=== PATIENT | female | born 1945 | race Caucasian/White ===

== ENCOUNTER 2018-03-17 08:08 | Outpatient (CLI) | payer MEDICARE, OTHER ==
--- NOTE | 2018-03-17 08:35 | RAD ---
TWO VIEW CHEST: COMPARISON: 05/06/07. CLINICAL HISTORY: Chest pain. FINDINGS: Cardiac silhouette is at upper limits of normal in size. There is no consolidation or effusion. No pneumothorax. There is vascular calcification. IMPRESSION: No focal consolidation. POS: ZOE[facility]
== END 2018-03-17 08:09 | disposition home or self-care (01) ==
LOC: RAD-FRANK 08:08
PROVIDERS: ATTEND Nurse Practitioner Family
DX: R07.9 Chest pain, unspecified (principal)
CPT/HCPCS: 71046

== ENCOUNTER 2018-12-12 08:21 | Outpatient (CLI) | payer MEDICARE, OTHER ==
--- NOTE | 2018-12-12 10:11 | MRI ---
MRI OF THE RIGHT KNEE WITHOUT CONTRAST: HISTORY: History Of right knee pain. COMPARISON: None. FINDINGS: There are small marginal osteophytes affecting all major compartments of the right knee. There is an area of focal full-thickness articular cartilage thinning involving the medial patellar f acet measuring 1.6 cm. There is moderate to severe diffuse chondrosis involving the medial femorotib ial joint compartment with multifocal areas of full-thickness articular cartilage fissuring involving the central medial femoral condyle. There is a full-thickness obliquely oriented radial tear involving the posterior horn and posterior r oot of the medial meniscus with partial medial extrusion. There is a partially discoid lateral menis cus without evidence of discrete tear. The ACL, PCL, MCL, and LCLC are intact. The extensor mechanism is intact. There is a small semimemb ranosus-medial gastrocnemius popliteal cyst. IMPRESSION: 1. Mild osteoarthrosis of the right knee. 2. Medial meniscal tear. POS: TPC
== END 2018-12-12 08:22 | disposition home or self-care (01) ==
LOC: BICMRI 08:21
PROVIDERS: ATTEND Orthopaedic Surgery
DX: M17.0 Bilateral primary osteoarthritis of knee (principal); S83.241A Other tear of medial meniscus, current injury, right knee, initial encounter

== ENCOUNTER 2020-02-29 08:48 | Outpatient (CLI) | payer MEDICARE, OTHER ==
[2020-02-29] MEDS ORDERED: Iopamidol 370 76% 100 ML VIAL ONE (09:25)
--- NOTE | 2020-02-29 10:05 | CT ---
EXAM: CT ABDOMEN AND PELVIS HISTORY: Gastric mass. Evaluate for staging. COMPARISON: None. Procedure: Multiple contiguous axial images were obtained and a CT of the abdomen and pelvis with IV contrast. C oronal reformats were performed. FINDINGS: Lower Chest: Dependent atelectatic changes. Vessels: Elongation of the aorta. Scattered atherosclerosis. No aneurysm or dissection. Heart: Normal heart size Abdomen: Portal vein:Patent Gallbladder: Slightly diminutive. Hyperenhancement. Nonspecific findings. Liver: within normal limits. Pancreas: within normal limits. Spleen: within normal limits. Adrenals: within normal limits. Kidneys: Symmetric enhancement. No obstructive uropathy. Peritoneum: No ascites or free air, no fluid collection. Bowel: There is circumferential mucosal prominence involving the distal body and antrum of the stomac h. No evidence of bowel obstruction. Ileocecal junction is unremarkable. Normal caliber appendix. Scattered fecal material in a nondistended, nondilated colon. Mesentery and Retroperitoneum: There are enlarged gastrohepatic lymph nodes near the distal aspect of the stomach (gastric antrum). [employer] lymph node measures 0.5 x 1.1 cm. Additional enlarged gastrohepatic lymph nodes are also noted, near the gastric cardia. Diverticulosis involving the left hemicolon. No evidence of diverticulitis. Abdominal Wall: within normal limits. Pelvis: Reproductive Organs: Surgically absent uterus Pelvis: No mass, lymphadenopathy, free air or free fluid. Bladder: within normal limits. Bones: No lytic or blastic lesions in the osseous structures. IMPRESSION: 1. Mucosal thickening involving the distal body of the stomach and gastric antrum compatible with rep orted neoplasm. 2. There is evidence of metastases with enlarged gastrohepatic lymph node at the level of the gastric cardia as well as the distal body of the stomach. Transcribed Date/Time: 02/29/2020 10:20 AM
== END 2020-02-29 08:49 | disposition home or self-care (01) ==
LOC: CT 08:48
PROVIDERS: ATTEND Internal Medicine Gastroenterology
DX: K31.89 Other diseases of stomach and duodenum (principal); R59.0 Localized enlarged lymph nodes; C78.89 Secondary malignant neoplasm of other digestive organs; C80.1 Malignant (primary) neoplasm, unspecified
CPT/HCPCS: 74177; 82565; Q9967

== ENCOUNTER 2020-06-17 14:08 | Emergency (ER) | payer MEDICARE, OTHER ==
[~2020-06-17 14:08] MED LIST: Iopamidol-370 76% 500 ML 1 ML ONE
[2020-06-17 14:41] LABS: #Lymphocytes 0.6 thou/uL (1.20-3.40); #Monocytes 0.1 thou/uL (0.11-0.59); %Basophils 0.1 % (0.0-1.0); %Eosinophils 0.3 % (0.0-10.0); %Monocytes 0.8 % (0.0-10.0); %Neutrophils 87.8 % (42.0-75.0); Hemoglobin 13.3 g/dL (12.0-16.0); Mean Corpuscular HGB CONC 33.9 g/dL (32.0-36.0); Mean Corpuscular Hemoglobin 28.1 pg (27.0-31.0); Mean Corpuscular Volume 82.9 fL (78.0-98.0); Mean Platelet Volume 7.3 fL (7.4-10.4); Platelet Count 274 thou/uL (130-400); RBC Distribution Width 18.7 % (11.5-14.5); Red Blood Cell (RBC) Count 4.72 mill/uL (4.20-5.40); White Blood Cell (WBC) Count 5.7 thou/uL (4.8-10.8)
--- NOTE | 2020-06-17 15:31 | RAD ---
CHEST ONE VIEW PORTABLE: 06/17/20 HISTORY: Chest pain. COMPARISON: 05/06/07 and 03/17/18. FINDINGS: Right central line and injection port. Bilateral lower lung zone horizontal linear and parenchymal ch anges evidence for subsegmental atelectasis. Heat size is within normal limits. The lungs appear norberto r. IMPRESSION: Horizontal linear and parenchymal changes in the bases probably subsegmental atelectasis or developin g chronic change. Right sided central line injection port. Atherosclerosis of the aorta. No evidence for other acute process. POS: RRE
--- NOTE | 2020-06-17 15:37 | CT ---
BRAIN CT WITHOUT IV CONTRAST: 06/17/20 HISTORY: Altered mental status, right sided facial tingling. FINDINGS: No focal mass or midline shift. No intra or extra-axial hemorrhage. Sinuses and mastoids are clear o f acute process. IMPRESSION: No significant acute intracranial process. No mass or bleed. POS: RRE
[2020-06-17 15:39] LABS: ALT (SGPT) 30 U/L (8-55); AST (SGOT) 36 U/L (5-34); Albumin 4.4 g/dL (3.4-4.8); Alkaline Phosphatase 173 U/L (40-110); Anion Gap 16 mmol/L (10-20); BUN (Urea Nitrogen) 8 mg/dL (9.8-20.1); Bilirubin, Total 0.7 mg/dL (0.2-1.2); CK (CPK) 71 U/L (29-168); Calc. Creatinine Clearance 0 mL/min (70-130); Calcium 10.2 mg/dL (7.8-10.44); Carbon Dioxide 21 mmol/L (23-31); Chloride 97 mmol/L (98-107); Estimated GFR-MDRD 63; Globulin 3.2 g/dL (2.4-3.5); Glucose 183 mg/dL (83-110); Potassium 3.1 mmol/L (3.5-5.1); Protein, Total 7.6 g/dL (6.0-8.3); Sodium 131 mmol/L (136-145)
--- NOTE | 2020-06-17 15:42 | CT ---
CT PULMONARY ANGIOGRAM WITH IV CONTRAST AND 3-D POSTPROCESSING: HISTORY:Chest pain FINDINGS: There is good contrast opacification of the pulmonary arterial vasculature without filling defects to suggest pulmonary embolism. The thoracic aorta is well opacified without aneurysm or dissection. No pleural or pericardial effusions are seen. No pneumothoraces, focal areas of consolidation or lung nodules are noted. There are mild dependent c hanges in the posterior lung bases. There are degenerative changes in the spine. Upper abdominal tomograms are unremarkable. IMPRESSION: No CT evidence of pulmonary embolism.
[2020-06-17] MEDS ORDERED: Potassium Chloride 20 MEQ TAB ONE (16:44)
== END 2020-06-17 17:04 | disposition home or self-care (01) ==
LOC: ERS 14:08
DX: R20.2 Paresthesia of skin (principal); E87.6 Hypokalemia; C16.9 Malignant neoplasm of stomach, unspecified; I10 Essential (primary) hypertension; E78.5 Hyperlipidemia, unspecified; F41.9 Anxiety disorder, unspecified; Z92.21 Personal history of antineoplastic chemotherapy
CPT/HCPCS: 70450; 71045; 71275; 80053; 82550; 84484; 85025; 93005; Q9967

== ENCOUNTER 2020-11-16 08:22 | Inpatient (IN) | payer MEDICARE, OTHER ==
[2020-11-16] MEDS ORDERED: Fentanyl 100 MCG/2 ML VIAL ONE (08:55)
[2020-11-16 09:13] LABS: #Basophils 0.1 thou/uL (0.0-0.2); #Eosinphils 1.4 thou/uL (0.0-0.7); #Lymphocytes 1.8 thou/uL (1.20-3.40); #Monocytes 0.9 thou/uL (0.11-0.59); #Neutrophils 10.8 thou/uL (1.40-6.50); %Basophils 0.6 % (0.0-1.0); %Eosinophils 9.4 % (0.0-10.0); %Lymphocytes 12.1 % (21.0-51.0); %Monocytes 5.9 % (0.0-10.0); Hemoglobin 12.4 g/dL (12.0-16.0); Mean Corpuscular HGB CONC 32.9 g/dL (32.0-36.0); Mean Corpuscular Hemoglobin 29.6 pg (27.0-31.0); Mean Corpuscular Volume 90.1 fL (78.0-98.0); Mean Platelet Volume 7.3 fL (7.4-10.4); Platelet Count 237 thou/uL (130-400); RBC Distribution Width 13.4 % (11.5-14.5); Red Blood Cell (RBC) Count 4.17 mill/uL (4.20-5.40)
[2020-11-16 09:26] LABS: ALT (SGPT) 37 U/L (8-55); AST (SGOT) 58 U/L (5-34); Albumin 3.3 g/dL (3.4-4.8); Alkaline Phosphatase 1911 U/L (40-110); Anion Gap 15 mmol/L (10-20); BUN (Urea Nitrogen) 4 mg/dL (9.8-20.1); Calc. Creatinine Clearance 0 mL/min (70-130); Calcium 9.2 mg/dL (7.8-10.44); Carbon Dioxide 24 mmol/L (23-31); Chloride 97 mmol/L (98-107); Glucose 152 mg/dL (83-110); Magnesium 1.9 mg/dL (1.6-2.6); Protein, Total 6.3 g/dL (5.8-8.1); Sodium 133 mmol/L (136-145)
[2020-11-16 09:29] LABS: Potassium 2.9 mmol/L (3.5-5.1)
[2020-11-16] MEDS ORDERED: Potassium Chloride 20 MEQ TAB ONE (10:26)
[2020-11-16 10:56] LABS: Bilirubin Negative (Negative); Blood, Urine Negative (Negative); Clarity Clear (Clear); Glucose, Urine (Dipstick) Normal (Negative); Ketone, Urine Negative (Negative); Leukocyte Negative Leu/uL (Negative); Nitrite Negative (Negative); Protein, Urine (Dipstick) Negative (Neg-Trace); Specific Gravity, Urine 1.017 (1.002-1.036); Urobilinogen Normal mg/dL (Less than 2)
[2020-11-16] MEDS ORDERED: Iopamidol-370 76% 500 ML 1 ML ONE (12:10)
[2020-11-16] MEDS ORDERED: Ondansetron PF 4 MG/2 ML Vial IVP PRN (15:09)
[2020-11-16 17:10] VITALS: BMI 17.7
[2020-11-16] MEDS: Acetaminophen 500 MG TAB PO PRN ×2 (17:13→23:47)
[2020-11-16] MEDS: Sodium Chloride 0.9% 1,000 ML IV SCH (17:15)
[2020-11-16] MEDS: Famotidine/PF 20 mg/2ml Vial SLOW IVP SCH (20:37)
[2020-11-16] MEDS: Cefepime 1 GM in Sodium Chloride 0.9% 100 ML IVPB SCH (20:37)
[2020-11-17 01:24] LABS: SARS-CoV-2 PCR by NAA Not Detected (NotDetected)
[2020-11-17] MEDS: Sodium Chloride 0.9% 1,000 ML IV SCH ×2 (05:31→18:25)
[2020-11-17 06:15] LABS: #Basophils 0.1 thou/uL (0.0-0.2); #Eosinphils 1.2 thou/uL (0.0-0.7); #Lymphocytes 1.7 thou/uL (1.20-3.40); #Monocytes 0.7 thou/uL (0.11-0.59); #Neutrophils 7.2 thou/uL (1.40-6.50); %Basophils 0.6 % (0.0-1.0); %Eosinophils 10.9 % (0.0-10.0); %Lymphocytes 15.8 % (21.0-51.0); %Monocytes 6.8 % (0.0-10.0); %Neutrophils 65.9 % (42.0-75.0); Hemoglobin 11.6 g/dL (12.0-16.0); Mean Corpuscular HGB CONC 32.8 g/dL (32.0-36.0); Mean Corpuscular Hemoglobin 29.9 pg (27.0-31.0); Mean Corpuscular Volume 91.4 fL (78.0-98.0); Mean Platelet Volume 7.4 fL (7.4-10.4); Platelet Count 204 thou/uL (130-400); RBC Distribution Width 13.4 % (11.5-14.5); Red Blood Cell (RBC) Count 3.87 mill/uL (4.20-5.40)
[2020-11-17 06:30] LABS: Anion Gap 13 mmol/L (10-20); BUN (Urea Nitrogen) 4 mg/dL (9.8-20.1); Calc. Creatinine Clearance 63 mL/min (70-130); Carbon Dioxide 25 mmol/L (23-31); Chloride 103 mmol/L (98-107); Glucose 85 mg/dL (83-110); Potassium 3.6 mmol/L (3.5-5.1); Sodium 137 mmol/L (136-145)
[2020-11-17] MEDS: Enoxaparin Sodium 40 MG/0.4 ML SYRINGE SC SCH (10:50)
[2020-11-17] MEDS: Lidocaine 5% Patch TD SCH (10:51)
[2020-11-17] MEDS: Cefepime 1 GM in Sodium Chloride 0.9% 100 ML IVPB SCH ×2 (11:25→20:38)
[2020-11-17] MEDS: Ondansetron ODT 4 MG TAB PO PRN (14:27)
[2020-11-17] MEDS ORDERED: Ondansetron HCl/PF 8 MG in Sodium Chloride 0.9% 50 ML IVPB PRN (16:25)
[2020-11-17] MEDS ORDERED: traMADol HCl 50 MG TAB PO PRN ×2 (16:29)
[2020-11-17] MEDS ORDERED: Ondansetron PF 4 MG/2 ML Vial IVP SCH (16:30)
[2020-11-17] MEDS: Famotidine/PF 20 mg/2ml Vial SLOW IVP SCH (20:38)
[2020-11-17] MEDS ORDERED: Transdermal Patch Removal TOP SCH (21:00)
[2020-11-18] MEDS: Acetaminophen 500 MG TAB PO PRN ×2 (00:41→09:53)
[2020-11-18] MEDS: Ondansetron ODT 4 MG TAB PO PRN (00:41)
[2020-11-18] MEDS: Sodium Chloride 0.9% 1,000 ML IV SCH (08:04)
[2020-11-18] MEDS: Lidocaine 5% Patch TD SCH (08:04)
[2020-11-18] MEDS: Enoxaparin Sodium 40 MG/0.4 ML SYRINGE SC SCH (08:04)
[2020-11-18] MEDS: Cefepime 1 GM in Sodium Chloride 0.9% 100 ML IVPB SCH (08:05)
[2020-11-18 11:35] VITALS: BP 143/71; TEMP 97.6
[2020-11-21 01:37] LABS: Alkaline Phosphastase Total 1648 IU/L (39-117); Bone 46 % (14-68); Intestinal 2 % (0-18); Liver 52 % (18-85)
== END 2020-11-18 13:16 | disposition home or self-care (01) | DRG 542 ==
LOC: ERS 08:22 → SJJU 13:41 → OBSVTOIN 11-17 13:56
PROVIDERS: ADMIT Internal Medicine; ATTEND Internal Medicine
DX: C79.51 Secondary malignant neoplasm of bone (principal); A41.9 Sepsis, unspecified organism; C16.9 Malignant neoplasm of stomach, unspecified; J98.11 Atelectasis; E46 Unspecified protein-calorie malnutrition; R64 Cachexia; Z68.1 Body mass index [BMI] 19.9 or less, adult; N39.0 Urinary tract infection, site not specified; E44.0 Moderate protein-calorie malnutrition; Z20.822 Contact with and (suspected) exposure to COVID-19; I10 Essential (primary) hypertension; E78.5 Hyperlipidemia, unspecified; E87.6 Hypokalemia; E83.39 Other disorders of phosphorus metabolism; K59.00 Constipation, unspecified; G89.29 Other chronic pain; B96.1 Klebsiella pneumoniae [K. pneumoniae] as the cause of diseases classified elsewhere; Z88.2 Allergy status to sulfonamides; Z88.6 Allergy status to analgesic agent; Z79.51 Long term (current) use of inhaled steroids; Z79.899 Other long term (current) drug therapy; Z90.710 Acquired absence of both cervix and uterus; Z88.8 Allergy status to other drugs, medicaments and biological substances
CPT/HCPCS: 36415; 74177; 76705; 78306; 80048; 80053; 81003; 83605; 83690; 83735; 84075; 85025; 87077; 87086; 87186; 87635; 93005; 94760; 96365; 96366; 96372; 96374; 96375; A9503; G0378; J0692; J1650; J2405; J3010; J3490; Q0162; Q9967; S0028; U0003; U0005

== ENCOUNTER 2020-12-28 17:47 | Inpatient (IN) | payer MEDICARE, OTHER ==
[2020-12-28] MEDS ORDERED: Lidocaine 1% (PF) 30 ML VIAL ONE (18:06)
[2020-12-28] MEDS ORDERED: Ondansetron PF 4 MG/2 ML Vial ONE (18:27)
[2020-12-28 18:31] LABS: Hemoglobin 7.1 g/dL (12.0-16.0); Mean Corpuscular HGB CONC 34.2 g/dL (32.0-36.0); Mean Corpuscular Hemoglobin 29.1 pg (27.0-31.0); Mean Corpuscular Volume 85.2 fL (78.0-98.0); Mean Platelet Volume 7.7 fL (7.4-10.4); Platelet Count 166 thou/uL (130-400); RBC Distribution Width 14.9 % (11.5-14.5); Red Blood Cell (RBC) Count 2.43 mill/uL (4.20-5.40); White Blood Cell (WBC) Count 1.3 thou/uL (4.8-10.8)
[2020-12-28 18:50] LABS: Anisocytosis SLIGHT = 6-15 cells (100X) (0-5/hpf); Band 4 % (5-11); Basophilic Stippling SLIGHT = 1-2 cells (100X) (None Seen); Differential Comment Blast-Like Cell(s); Eosinophils 11 % (0-10); Lymphocytes 48 % (21-51); MDiff Complete? YES; Monocytes 23 % (0-10); Neutrophil 7 % (42-75); Nucleated RBC 4 % (0); Platelet Morphology Comment Appears Adequate; Polychromasia MODERATE = 3-4 cells (100X) (0-2/hpf); Reactive Lymphocytes 1 % (0-10); Reflex for Review?? YES; Tear Drops SLIGHT = 2-5 cells (100X) (0-1/hpf)
[2020-12-28 18:52] LABS: ALT (SGPT) 13 U/L (8-55); AST (SGOT) 22 U/L (5-34); Albumin 3.1 g/dL (3.4-4.8); Alkaline Phosphatase 1169 U/L (40-110); Anion Gap 16 mmol/L (10-20); BUN (Urea Nitrogen) 11 mg/dL (9.8-20.1); Bilirubin, Total 1.1 mg/dL (0.2-1.2); Calc. Creatinine Clearance 0 mL/min (70-130); Calcium 8.6 mg/dL (7.8-10.44); Carbon Dioxide 21 mmol/L (23-31); Chloride 96 mmol/L (98-107); Globulin 2.8 g/dL (2.4-3.5); Glucose 141 mg/dL (83-110); Protein, Total 5.9 g/dL (5.8-8.1); Sodium 131 mmol/L (136-145)
[2020-12-28 19:00] LABS: Potassium 2.4 mmol/L (3.5-5.1)
[2020-12-28] MEDS ORDERED: Potassium Chloride 20 MEQ TAB ONE (19:17)
[2020-12-28] MEDS ORDERED: D5 1/2 NS w/40 mEq KCL 1,000 ML IV SCH (19:30)
[2020-12-28 20:15] LABS: Bacteria/HPF 3+ HPF (None Seen); Bilirubin Negative (Negative); Blood, Urine Trace (Negative); Clarity Turbid (Clear); Glucose, Urine (Dipstick) Normal (Negative); Ketone, Urine Negative (Negative); Leukocyte Negative Leu/uL (Negative); Nitrite Negative (Negative); Protein, Urine (Dipstick) 30 mg/dL (Neg-Trace); RBC/HPF 0-3 HPF (0-3); Specific Gravity, Urine 1.016 (1.002-1.036); Urobilinogen Normal mg/dL (Less than 2); pH, Urine 5.5 (5.0-9.0)
[2020-12-28] MEDS ORDERED: Ondansetron PF 4 MG/2 ML Vial IVP PRN (21:11)
[2020-12-28] MEDS ORDERED: Sodium Chloride 0.9% 1,000 ML IV SCH (21:15)
[2020-12-28 22:04] LABS: Lactic Acid 2.1 mmol/L (0.5-2.2)
[2020-12-28] MEDS: Piperacillin/Tazobactam 3.375 GM in Sodium Chloride 0.9% 100 ML IVPB SCH (22:15)
[2020-12-29] MEDS ORDERED: Magnesium Oxide 400 MG TAB PO SCH (00:30)
[2020-12-29] MEDS: Piperacillin/Tazobactam 3.375 GM in Sodium Chloride 0.9% 100 ML IVPB SCH ×4 (02:56→17:48)
[2020-12-29 05:28] LABS: SARS-CoV-2 PCR by NAA Not Detected (NotDetected)
[2020-12-29 06:32] LABS: Hemoglobin A1c 5.9 % (4.0-6.0)
[2020-12-29 06:38] LABS: Mean Corpuscular HGB CONC 33.1 g/dL (32.0-36.0); Mean Corpuscular Hemoglobin 28.6 pg (27.0-31.0); Mean Corpuscular Volume 86.2 fL (78.0-98.0); Mean Platelet Volume 7.6 fL (7.4-10.4); Platelet Count 163 thou/uL (130-400); Red Blood Cell (RBC) Count 2.11 mill/uL (4.20-5.40); White Blood Cell (WBC) Count 1.7 thou/uL (4.8-10.8)
[2020-12-29 06:41] LABS: Anion Gap 13 mmol/L (10-20); BUN (Urea Nitrogen) 7 mg/dL (9.8-20.1); Calc. Creatinine Clearance 57 mL/min (70-130); Calcium 8.2 mg/dL (7.8-10.44); Carbon Dioxide 21 mmol/L (23-31); Chloride 103 mmol/L (98-107); Glucose 89 mg/dL (83-110); Magnesium 1.5 mg/dL (1.6-2.6); Sodium 134 mmol/L (136-145)
[2020-12-29 06:42] LABS: Potassium 2.7 mmol/L (3.5-5.1)
[2020-12-29 06:46] LABS: ALT (SGPT) 12 U/L (8-55); AST (SGOT) 19 U/L (5-34); Albumin 2.7 g/dL (3.4-4.8); Alkaline Phosphatase 1017 U/L (40-110); Bilirubin, Direct 0.4 mg/dL (0.1-0.3); Bilirubin, Total 0.9 mg/dL (0.2-1.2); Protein, Total 5.2 g/dL (5.8-8.1)
[2020-12-29 06:54] LABS: Band 1 % (5-11); Eosinophils 9 % (0-10); Lymphocytes 61 % (21-51); MDiff Complete? YES; Metamyelocyte 1 % (0-0); Monocytes 13 % (0-10); Myelocyte 2 % (0-0); Neutrophil 11 % (42-75); Platelet Morphology Comment Appears Adequate; Reactive Lymphocytes 2 % (0-10)
[2020-12-29] MEDS ORDERED: Magnesium 2 GM/50 ML 2 GM in Premix Bag 1 BAG IVPB SCH (07:00)
[2020-12-29] MEDS ORDERED: Potassium Chloride 20 MEQ TAB PO SCH (07:00)
[2020-12-29] MEDS ORDERED: Potassium Chloride 40 MEQ in Sodium Chloride 0.9% 250 ML 250 ML IVPB SCH (07:00)
[2020-12-29] MEDS: Sodium Chloride 0.9% 1,000 ML IV SCH (07:37)
[2020-12-29] MEDS: Enoxaparin Sodium 40 MG/0.4 ML SYRINGE SC SCH (08:30)
[2020-12-29] MEDS: Famotidine 20 MG TAB PO SCH ×2 (08:30→20:38)
[2020-12-29] MEDS ORDERED: Ketorolac Tromethamine 30 MG/ML VIAL IVP SCH (14:30)
[2020-12-29] MEDS ORDERED: Morphine 4 MG/ML VIAL SLOW IVP PRN (14:32)
[2020-12-29] MEDS ORDERED: Ondansetron HCl/PF 8 MG in Sodium Chloride 0.9% 50 ML IVPB PRN (16:17)
[2020-12-29 17:19] LABS: Hemoglobin 8.7 g/dL (12.0-16.0)
[2020-12-29] MEDS: D5W-AA 4.25% with LYTES 1,000 ML IV SCH (17:44)
[2020-12-29] MEDS: BIOTENE MOUTH SPRAY 44.3 ML PO SCH ×2 (18:57→20:39)
[2020-12-30] MEDS: Piperacillin/Tazobactam 3.375 GM in Sodium Chloride 0.9% 100 ML IVPB SCH ×3 (02:18→11:27)
[2020-12-30] MEDS: Sodium Chloride 0.9% 1,000 ML IV SCH ×2 (03:07→20:00)
[2020-12-30 05:45] LABS: ALT (SGPT) 10 U/L (8-55); AST (SGOT) 14 U/L (5-34); Albumin 2.4 g/dL (3.4-4.8); Alkaline Phosphatase 839 U/L (40-110); Bilirubin, Direct 0.3 mg/dL (0.1-0.3); Bilirubin, Total 0.6 mg/dL (0.2-1.2); Protein, Total 4.5 g/dL (5.8-8.1)
[2020-12-30 05:48] LABS: Anion Gap 11 mmol/L (10-20); BUN (Urea Nitrogen) 6 mg/dL (9.8-20.1); Calc. Creatinine Clearance 61 mL/min (70-130); Calcium 7.8 mg/dL (7.8-10.44); Carbon Dioxide 19 mmol/L (23-31); Chloride 107 mmol/L (98-107); Glucose 116 mg/dL (83-110); Magnesium 1.8 mg/dL (1.6-2.6); Sodium 134 mmol/L (136-145)
[2020-12-30 05:49] LABS: Potassium 2.5 mmol/L (3.5-5.1)
[2020-12-30 05:50] LABS: Band 8 % (5-11); Eosinophils 14 % (0-10); Hemoglobin 7.3 g/dL (12.0-16.0); Hypochromia SLIGHT = 6-15 cells (100X) (0-5/hpf); Lymphocytes 56 % (21-51); MDiff Complete? YES; Mean Corpuscular HGB CONC 34.5 g/dL (32.0-36.0); Mean Corpuscular Hemoglobin 29.6 pg (27.0-31.0); Mean Platelet Volume 7.2 fL (7.4-10.4); Monocytes 8 % (0-10); Neutrophil 14 % (42-75); Nucleated RBC 1 % (0); Platelet Count 218 thou/uL (130-400); Platelet Morphology Comment Appears Adequate; Polychromasia SLIGHT = 2-3 cells (100X) (0-2/hpf); RBC Distribution Width 14.3 % (11.5-14.5); Red Blood Cell (RBC) Count 2.46 mill/uL (4.20-5.40)
[2020-12-30] MEDS ORDERED: Potassium Chloride 40 MEQ in Premix Bag 1 BAG IVPB SCH (06:30)
[2020-12-30] MEDS ORDERED: Potassium Chloride 20 MEQ TAB PO SCH (06:30)
[2020-12-30] MEDS: Enoxaparin Sodium 40 MG/0.4 ML SYRINGE SC SCH (08:14)
[2020-12-30] MEDS: Famotidine 20 MG TAB PO SCH ×2 (08:15→20:23)
[2020-12-30] MEDS: BIOTENE MOUTH SPRAY 44.3 ML PO SCH ×4 (08:15→20:24)
[2020-12-30] MEDS ORDERED: Aluminum & Magnesium Hydroxide 60 ML, Lidocaine 2% Viscous Solution 30 ML, diphenhydrAM... SSW PRN (13:12)
[2020-12-30 13:52] LABS: Anion Gap 12 mmol/L (10-20); BUN (Urea Nitrogen) 7 mg/dL (9.8-20.1); Calc. Creatinine Clearance 57 mL/min (70-130); Calcium 8.3 mg/dL (7.8-10.44); Carbon Dioxide 20 mmol/L (23-31); Chloride 105 mmol/L (98-107); Glucose 116 mg/dL (83-110); Potassium 3.1 mmol/L (3.5-5.1); Sodium 134 mmol/L (136-145)
[2020-12-30] MEDS: metroNIDAZOLE 500 MG in Premix Bag 1 BAG IVPB SCH ×2 (14:03→21:48)
[2020-12-30] MEDS: Potassium Chloride 20 MEQ TAB PO SCH ×2 (17:36→20:23)
[2020-12-30] MEDS: D5W-AA 4.25% with LYTES 1,000 ML IV SCH (20:01)
[2020-12-31 05:55] LABS: Anion Gap 13 mmol/L (10-20); BUN (Urea Nitrogen) 6 mg/dL (9.8-20.1); Band 2 % (5-11); Calc. Creatinine Clearance 60 mL/min (70-130); Calcium 8.6 mg/dL (7.8-10.44); Carbon Dioxide 19 mmol/L (23-31); Chloride 106 mmol/L (98-107); Eosinophils 6 % (0-10); Glucose 89 mg/dL (83-110); Hemoglobin 8.3 g/dL (12.0-16.0); Lymphocytes 48 % (21-51); MDiff Complete? YES; Magnesium 1.6 mg/dL (1.6-2.6); Mean Corpuscular HGB CONC 33.9 g/dL (32.0-36.0); Mean Corpuscular Hemoglobin 29.3 pg (27.0-31.0); Mean Corpuscular Volume 86.7 fL (78.0-98.0); Mean Platelet Volume 6.8 fL (7.4-10.4); Metamyelocyte 10 % (0-0); Monocytes 7 % (0-10); Neutrophil 25 % (42-75); Platelet Count 285 thou/uL (130-400); Platelet Morphology Comment Appears Adequate; Potassium 4.6 mmol/L (3.5-5.1); RBC Distribution Width 14.9 % (11.5-14.5); Reactive Lymphocytes 1 % (0-10); Red Blood Cell (RBC) Count 2.83 mill/uL (4.20-5.40); Sodium 133 mmol/L (136-145); White Blood Cell (WBC) Count 7.6 thou/uL (4.8-10.8)
[2020-12-31] MEDS: metroNIDAZOLE 500 MG in Premix Bag 1 BAG IVPB SCH ×3 (06:25→21:39)
[2020-12-31] MEDS: Enoxaparin Sodium 40 MG/0.4 ML SYRINGE SC SCH (07:41)
[2020-12-31] MEDS: Famotidine 20 MG TAB PO SCH ×2 (07:41→20:24)
[2020-12-31] MEDS: BIOTENE MOUTH SPRAY 44.3 ML PO SCH ×4 (07:41→21:39)
[2020-12-31 10:07] VITALS: BMI 17.6
[2020-12-31] MEDS: Sodium Chloride 0.9% 1,000 ML IV SCH (20:23)
[2020-12-31] MEDS: D5W-AA 4.25% with LYTES 1,000 ML IV SCH (20:24)
[2021-01-01] MEDS ORDERED: Acetaminophen 500 MG TAB PO PRN (04:39)
[2021-01-01] MEDS: metroNIDAZOLE 500 MG in Premix Bag 1 BAG IVPB SCH ×2 (05:02→14:26)
[2021-01-01 07:10] LABS: Band 16 % (5-11); Eosinophils 9 % (0-10); Hemoglobin 7.5 g/dL (12.0-16.0); Lymphocytes 20 % (21-51); MDiff Complete? YES; Mean Corpuscular HGB CONC 34.3 g/dL (32.0-36.0); Mean Corpuscular Hemoglobin 29.5 pg (27.0-31.0); Mean Corpuscular Volume 85.9 fL (78.0-98.0); Mean Platelet Volume 6.5 fL (7.4-10.4); Metamyelocyte 8 % (0-0); Monocytes 11 % (0-10); Myelocyte 13 % (0-0); Neutrophil 23 % (42-75); Platelet Count 256 thou/uL (130-400); Platelet Morphology Comment Appears Adequate; RBC Distribution Width 14.8 % (11.5-14.5); Red Blood Cell (RBC) Count 2.54 mill/uL (4.20-5.40)
[2021-01-01 07:16] LABS: ALT (SGPT) 11 U/L (8-55); AST (SGOT) 19 U/L (5-34); Albumin 2.3 g/dL (3.4-4.8); Alkaline Phosphatase 864 U/L (40-110); Anion Gap 11 mmol/L (10-20); BUN (Urea Nitrogen) 6 mg/dL (9.8-20.1); Bilirubin, Total 0.5 mg/dL (0.2-1.2); Calc. Creatinine Clearance 70 mL/min (70-130); Calcium 7.9 mg/dL (7.8-10.44); Carbon Dioxide 18 mmol/L (23-31); Chloride 105 mmol/L (98-107); Globulin 2.2 g/dL (2.4-3.5); Glucose 100 mg/dL (83-110); Magnesium 1.4 mg/dL (1.6-2.6); Potassium 3.4 mmol/L (3.5-5.1); Protein, Total 4.5 g/dL (5.8-8.1); Sodium 131 mmol/L (136-145)
[2021-01-01] MEDS: Enoxaparin Sodium 40 MG/0.4 ML SYRINGE SC SCH (08:22)
[2021-01-01] MEDS: Famotidine 20 MG TAB PO SCH (08:22)
[2021-01-01] MEDS: BIOTENE MOUTH SPRAY 44.3 ML PO SCH ×2 (08:22→14:26)
[2021-01-01] MEDS ORDERED: Magnesium 2 GM/50 ML 2 GM in Premix Bag 1 BAG IVPB SCH (09:30)
[2021-01-01] MEDS ORDERED: Magnesium Sulfate 2 GM in Sodium Chloride 0.9% 100 ML IVPB SCH (09:30)
[2021-01-01 15:18] VITALS: TEMP 98.2
[2021-01-01] MEDS: Sodium Chloride 0.9% 1,000 ML IV SCH (16:00)
[2021-01-01 16:08] VITALS: BP 106/64
[2021-01-02 16:15] LABS: Routine O & P Final report (.)
== END 2021-01-01 16:46 | disposition home or self-care (01) | DRG 393 ==
LOC: ERS 17:47 → 2NO 19:40 → OBSVTOIN 12-29 09:31
PROVIDERS: ADMIT Internal Medicine; ATTEND Internal Medicine
PROC: 30233N1 Transfusion of Nonautologous Red Blood Cells into Peripheral Vein, Percutaneous Approach (ICD-10-PCS; principal; 2020-12-29)
DX: K52.1 Toxic gastroenteritis and colitis (principal); E43 Unspecified severe protein-calorie malnutrition; D61.810 Antineoplastic chemotherapy induced pancytopenia; C16.9 Malignant neoplasm of stomach, unspecified; C79.51 Secondary malignant neoplasm of bone; E87.2 Acidosis; Z68.1 Body mass index [BMI] 19.9 or less, adult; Z20.822 Contact with and (suspected) exposure to COVID-19; I10 Essential (primary) hypertension; E78.5 Hyperlipidemia, unspecified; E87.6 Hypokalemia; R74.8 Abnormal levels of other serum enzymes; E86.0 Dehydration; K12.1 Other forms of stomatitis; T45.1X5A Adverse effect of antineoplastic and immunosuppressive drugs, initial encounter; Z88.2 Allergy status to sulfonamides; Z88.8 Allergy status to other drugs, medicaments and biological substances; Z79.899 Other long term (current) drug therapy; Z90.710 Acquired absence of both cervix and uterus; Z88.1 Allergy status to other antibiotic agents
CPT/HCPCS: 36415; 36416; 36430; 71045; 74177; 78227; 80048; 80053; 80076; 81003; 81015; 82140; 83036; 83605; 83735; 83880; 84484; 85025; 85060; 86850; 86900; 86901; 87040; 87045; 87046; 87077; 87086; 87177; 87186; 87324; 87427; 87449; 87635; 93005; 96365; 96372; 96375; 96376; A9537; G0378; J0744; J1642; J1650; J1885; J2001; J2405; J2543; J3475; J3480; J3490; J7050; P9016; Q9967; U0003; U0005

== ENCOUNTER 2021-01-24 12:26 | Inpatient (IN) | payer MEDICARE, OTHER ==
[2021-01-24 13:36] LABS: Hemoglobin 8.7 g/dL (12.0-16.0); Mean Corpuscular HGB CONC 32.4 g/dL (32.0-36.0); Mean Corpuscular Hemoglobin 28.5 pg (27.0-31.0); Mean Corpuscular Volume 88.2 fL (78.0-98.0); Mean Platelet Volume 7.5 fL (7.4-10.4); Platelet Count 217 thou/uL (130-400); Red Blood Cell (RBC) Count 3.04 mill/uL (4.20-5.40); White Blood Cell (WBC) Count 12.2 thou/uL (4.8-10.8)
[2021-01-24 13:53] LABS: Anisocytosis SLIGHT = 6-15 cells (100X) (0-5/hpf); Band 18 % (5-11); Eosinophils 6 % (0-10); Lymphocytes 14 % (21-51); MDiff Complete? YES; Monocytes 8 % (0-10); Myelocyte 1 % (0-0); Neutrophil 51 % (42-75); Platelet Morphology Comment Appears Adequate; Polychromasia SLIGHT = 2-3 cells (100X) (0-2/hpf); Reactive Lymphocytes 2 % (0-10)
[2021-01-24] MEDS ORDERED: Ondansetron PF 4 MG/2 ML Vial ONE (14:03)
[2021-01-24] MEDS ORDERED: Morphine 4 MG/ML VIAL ONE (14:03)
[2021-01-24 14:04] LABS: ALT (SGPT) 24 U/L (8-55); AST (SGOT) 29 U/L (5-34); Albumin 3.4 g/dL (3.4-4.8); Alkaline Phosphatase 1800 U/L (40-110); Anion Gap 16 mmol/L (10-20); BUN (Urea Nitrogen) 10 mg/dL (9.8-20.1); Bilirubin, Total 0.5 mg/dL (0.2-1.2); Calc. Creatinine Clearance 0 mL/min (70-130); Calcium 8.6 mg/dL (7.8-10.44); Carbon Dioxide 23 mmol/L (23-31); Chloride 100 mmol/L (98-107); Globulin 2.4 g/dL (2.4-3.5); Glucose 113 mg/dL (83-110); Lipase 36 U/L (8-78); Potassium 3.5 mmol/L (3.5-5.1); Protein, Total 5.8 g/dL (5.8-8.1); Sodium 135 mmol/L (136-145)
[2021-01-24 14:13] LABS: Bilirubin Negative (Negative); Blood, Urine Negative (Negative); Clarity Clear (Clear); Glucose, Urine (Dipstick) Normal (Negative); Ketone, Urine Negative (Negative); Leukocyte Negative Leu/uL (Negative); Nitrite Negative (Negative); Protein, Urine (Dipstick) 10 mg/dL (Neg-Trace); Specific Gravity, Urine 1.028 (1.002-1.036); Urobilinogen Normal mg/dL (Less than 2)
[2021-01-24] MEDS ORDERED: Acetaminophen 325 MG TAB PO PRN (15:04)
[2021-01-24] MEDS ORDERED: SUMATRIPTAN 5 MG EA NARE PRN (15:46)
[2021-01-24] MEDS: Sodium Chloride 0.9% 1,000 ML IV SCH (19:54)
[2021-01-24] MEDS: Atorvastatin Calcium 20 MG TAB PO SCH (20:46)
[2021-01-24] MEDS: Ondansetron PF 4 MG/2 ML Vial IVP PRN (20:46)
[2021-01-24 20:53] VITALS: BMI 15.5
[2021-01-24] MEDS ORDERED: HYDROcodone/Acetaminophen 5/325 mg Tablet PO PRN (22:44)
[2021-01-24] MEDS: fentaNYL 50 mcg/hour Patch TD SCH (23:04)
[2021-01-24] MEDS: Amino Acids 4.25 %/Dextrose 5% 1,000 ML IV SCH (23:05)
[2021-01-24] MEDS: Promethazine HCl 25 MG/ML VIAL IM PRN (23:05)
[2021-01-25] MEDS ORDERED: Morphine 4 MG/ML VIAL SLOW IVP SCH (00:45)
[2021-01-25] MEDS: Ondansetron PF 4 MG/2 ML Vial IVP PRN (04:49)
[2021-01-25] MEDS: Sodium Chloride 0.9% 1,000 ML IV SCH ×3 (04:49→21:19)
[2021-01-25 05:08] LABS: Mean Corpuscular HGB CONC 32.3 g/dL (32.0-36.0); Mean Corpuscular Hemoglobin 28.2 pg (27.0-31.0); Mean Corpuscular Volume 87.4 fL (78.0-98.0); Mean Platelet Volume 7.3 fL (7.4-10.4); Platelet Count 210 thou/uL (130-400); RBC Distribution Width 16.7 % (11.5-14.5); Red Blood Cell (RBC) Count 2.49 mill/uL (4.20-5.40); White Blood Cell (WBC) Count 17.2 thou/uL (4.8-10.8)
[2021-01-25 05:24] LABS: Anion Gap 10 mmol/L (10-20); BUN (Urea Nitrogen) 8 mg/dL (9.8-20.1); Calc. Creatinine Clearance 57 mL/min (70-130); Calcium 8.3 mg/dL (7.8-10.44); Carbon Dioxide 24 mmol/L (23-31); Chloride 103 mmol/L (98-107); Glucose 94 mg/dL (83-110); Sodium 134 mmol/L (136-145)
[2021-01-25 05:26] LABS: Potassium 2.8 mmol/L (3.5-5.1)
[2021-01-25 05:28] LABS: Band 38 % (5-11); Eosinophils 6 % (0-10); Hypochromia SLIGHT = 6-15 cells (100X) (0-5/hpf); Lymphocytes 21 % (21-51); MDiff Complete? YES; Metamyelocyte 1 % (0-0); Monocytes 7 % (0-10); Neutrophil 24 % (42-75); Nucleated RBC 1 % (0); Platelet Morphology Comment Appears Adequate; Reactive Lymphocytes 3 % (0-10)
[2021-01-25 06:00] LABS: SARS-CoV-2 NAA Rapid Test Not Detected (NotDetected)
[2021-01-25] MEDS ORDERED: Potassium Chloride 40 MEQ in Premix Bag 1 BAG IVPB SCH (06:00)
[2021-01-25] MEDS ORDERED: Benzonatate 100 MG CAP PO PRN (08:02)
[2021-01-25] MEDS ORDERED: Promethazine 25 MG TAB PO PRN (08:02)
[2021-01-25] MEDS ORDERED: Omega-3 Acid Ethyl Esters [Lovaza] 1 GM Capsule PO SCH (09:00)
[2021-01-25] MEDS: Losartan 25 MG TAB PO SCH (09:00)
[2021-01-25] MEDS: Potassium Chloride 20 MEQ TAB PO SCH ×2 (10:15→14:15)
[2021-01-25] MEDS ORDERED: Morphine 4 MG/ML VIAL SLOW IVP PRN (12:10)
[2021-01-25] MEDS: Promethazine HCl 25 MG/ML VIAL IM PRN (12:17)
[2021-01-25] MEDS ORDERED: CLOBETASOL PROPIONATE TOP SCH (12:30)
[2021-01-25] MEDS: Atorvastatin Calcium 20 MG TAB PO SCH (21:19)
[2021-01-25] MEDS: Amino Acids 4.25 %/Dextrose 5% 1,000 ML IV SCH (21:19)
[2021-01-26 06:04] LABS: Anion Gap 10 mmol/L (10-20); BUN (Urea Nitrogen) 9 mg/dL (9.8-20.1); Calc. Creatinine Clearance 66 mL/min (70-130); Calcium 8.1 mg/dL (7.8-10.44); Carbon Dioxide 23 mmol/L (23-31); Chloride 102 mmol/L (98-107); Glucose 95 mg/dL (83-110); Sodium 132 mmol/L (136-145)
[2021-01-26 06:06] LABS: Potassium 2.7 mmol/L (3.5-5.1)
[2021-01-26 06:13] LABS: Hemoglobin 6.5 g/dL (12.0-16.0); Mean Corpuscular HGB CONC 32.7 g/dL (32.0-36.0); Mean Corpuscular Hemoglobin 28.7 pg (27.0-31.0); Mean Corpuscular Volume 87.9 fL (78.0-98.0); Mean Platelet Volume 7.2 fL (7.4-10.4); Platelet Count 213 thou/uL (130-400); RBC Distribution Width 16.9 % (11.5-14.5); Red Blood Cell (RBC) Count 2.26 mill/uL (4.20-5.40)
[2021-01-26 06:52] LABS: Band 31 % (5-11); Eosinophils 2 % (0-10); Lymphocytes 20 % (21-51); MDiff Complete? YES; Monocytes 1 % (0-10); Neutrophil 45 % (42-75); Nucleated RBC 2 % (0); White Blood Cell (WBC) Count 20.4 thou/uL (4.8-10.8)
[2021-01-26] MEDS ORDERED: Electrolyte Replacement Protocol FS PRN (07:00)
[2021-01-26] MEDS ORDERED: Magnesium Sulfate 4 GM in Sodium Chloride 0.9% 250 ML 250 ML IVPB SCH (07:30)
[2021-01-26] MEDS: Sodium Chloride 0.9% 1,000 ML IV SCH ×2 (07:33→20:46)
[2021-01-26] MEDS: Losartan 25 MG TAB PO SCH (08:05)
[2021-01-26] MEDS: Potassium Chloride 40 MEQ in Premix Bag 1 BAG IVPB SCH ×2 (08:06→13:52)
[2021-01-26] MEDS ORDERED: Potassium Chloride 20 MEQ TAB PO SCH (09:00)
[2021-01-26] MEDS: Ondansetron PF 4 MG/2 ML Vial IVP PRN ×2 (09:37→17:19)
[2021-01-26] MEDS ORDERED: Loperamide HCl 2 MG CAP PO PRN (10:16)
[2021-01-26] MEDS ORDERED: Loperamide HCl 2 MG CAP PO SCH (10:30)
[2021-01-26] MEDS ORDERED: Potassium Chloride 40 MEQ in Premix Bag 1 BAG IVPB SCH (16:00)
[2021-01-26] MEDS ORDERED: Simethicone Chewable 80 MG TAB PO PRN (17:03)
[2021-01-26] MEDS: Simethicone Chewable 80 MG TAB PO PRN (17:34)
[2021-01-26] MEDS: Atorvastatin Calcium 20 MG TAB PO SCH (20:15)
[2021-01-26] MEDS: Amino Acids 4.25 %/Dextrose 5% 1,000 ML IV SCH (20:16)
[2021-01-26] MEDS: Promethazine HCl 25 MG/ML VIAL IM PRN (20:22)
[2021-01-27 05:38] LABS: Anion Gap 11 mmol/L (10-20); BUN (Urea Nitrogen) 7 mg/dL (9.8-20.1); Calc. Creatinine Clearance 66 mL/min (70-130); Calcium 8.3 mg/dL (7.8-10.44); Carbon Dioxide 21 mmol/L (23-31); Chloride 101 mmol/L (98-107); Glucose 93 mg/dL (83-110); Potassium 3.2 mmol/L (3.5-5.1); Sodium 130 mmol/L (136-145)
[2021-01-27 05:46] LABS: Hemoglobin 8.3 g/dL (12.0-16.0); Mean Corpuscular HGB CONC 32.4 g/dL (32.0-36.0); Mean Corpuscular Hemoglobin 28.1 pg (27.0-31.0); Mean Corpuscular Volume 86.8 fL (78.0-98.0); Mean Platelet Volume 7.3 fL (7.4-10.4); Platelet Count 206 thou/uL (130-400); RBC Distribution Width 16.1 % (11.5-14.5); Red Blood Cell (RBC) Count 2.97 mill/uL (4.20-5.40); White Blood Cell (WBC) Count 28.3 thou/uL (4.8-10.8)
[2021-01-27 06:08] LABS: Band 27 % (5-11); Eosinophils 4 % (0-10); Lymphocytes 12 % (21-51); MDiff Complete? YES; Monocytes 4 % (0-10); Neutrophil 53 % (42-75); Nucleated RBC 1 % (0)
[2021-01-27] MEDS ORDERED: Potassium Chloride 20 MEQ TAB PO SCH (06:30)
[2021-01-27] MEDS: Promethazine HCl 25 MG/ML VIAL IM PRN ×2 (07:34→17:00)
[2021-01-27] MEDS: Losartan 25 MG TAB PO SCH (10:06)
[2021-01-27] MEDS: Ondansetron PF 4 MG/2 ML Vial IVP PRN (13:22)
[2021-01-27] MEDS: Potassium Chloride 20 MEQ in Premix Bag 1 BAG IVPB SCH ×2 (14:01→17:00)
[2021-01-27] MEDS: Sodium Chloride 0.9% 1,000 ML IV SCH ×2 (16:59→21:02)
[2021-01-27] MEDS: fentaNYL 50 mcg/hour Patch TD SCH (20:59)
[2021-01-27] MEDS: Atorvastatin Calcium 20 MG TAB PO SCH (20:59)
[2021-01-27] MEDS: Amino Acids 4.25 %/Dextrose 5% 1,000 ML IV SCH (20:59)
[2021-01-27] MEDS: Simethicone Chewable 80 MG TAB PO PRN (21:05)
[2021-01-27] MEDS ORDERED: Lorazepam 2 MG/ML VIAL SLOW IVP SCH (23:59)
[2021-01-28] MEDS: Sodium Chloride 0.9% 1,000 ML IV SCH ×3 (02:42→20:04)
[2021-01-28] MEDS: Losartan 25 MG TAB PO SCH (10:07)
[2021-01-28] MEDS: Promethazine HCl 12.5 MG in Sodium Chloride 0.9% 50 ML IVPB PRN ×2 (12:35→18:15)
[2021-01-28] MEDS: Amino Acids 4.25 %/Dextrose 5% 1,000 ML IV SCH (18:14)
[2021-01-28] MEDS: Atorvastatin Calcium 20 MG TAB PO SCH (20:03)
[2021-01-29] MEDS: Promethazine HCl 12.5 MG in Sodium Chloride 0.9% 50 ML IVPB PRN ×4 (00:05→19:39)
[2021-01-29] MEDS: Losartan 25 MG TAB PO SCH ×2 (08:07→08:09)
[2021-01-29] MEDS: Sodium Chloride 0.9% 1,000 ML IV SCH (12:36)
[2021-01-29] MEDS: Ondansetron PF 4 MG/2 ML Vial IVP PRN ×2 (16:42→21:59)
[2021-01-29] MEDS: Atorvastatin Calcium 20 MG TAB PO SCH (19:43)
[2021-01-29] MEDS: Ondansetron HCl/PF 8 MG in Sodium Chloride 0.9% 50 ML IVPB PRN (23:43)
[2021-01-30] MEDS: Promethazine HCl 12.5 MG in Sodium Chloride 0.9% 50 ML IVPB PRN ×4 (02:05→19:59)
[2021-01-30] MEDS: Ondansetron PF 4 MG/2 ML Vial IVP PRN ×3 (05:21→18:00)
[2021-01-30] MEDS: Ketorolac Tromethamine 30 MG/ML VIAL IVP PRN ×3 (07:39→22:33)
[2021-01-30] MEDS: Losartan 25 MG TAB PO SCH (07:59)
[2021-01-30 09:39] LABS: Anisocytosis SLIGHT = 6-15 cells (100X) (0-5/hpf); Band 15 % (5-11); Dohle Bodies SLIGHT; Eosinophils 3 % (0-10); Hemoglobin 8.1 g/dL (12.0-16.0); Lymphocytes 3 % (21-51); MDiff Complete? YES; Mean Corpuscular HGB CONC 33.2 g/dL (32.0-36.0); Mean Corpuscular Hemoglobin 28.8 pg (27.0-31.0); Mean Corpuscular Volume 86.9 fL (78.0-98.0); Mean Platelet Volume 7.4 fL (7.4-10.4); Metamyelocyte 1 % (0-0); Monocytes 6 % (0-10); Neutrophil 72 % (42-75); Nucleated RBC 1 % (0); Platelet Count 198 thou/uL (130-400); Platelet Morphology Comment Appears Adequate; Polychromasia SLIGHT = 2-3 cells (100X) (0-2/hpf); RBC Distribution Width 16.3 % (11.5-14.5); Toxic Granulation MODERATE; White Blood Cell (WBC) Count 38.2 thou/uL (4.8-10.8)
[2021-01-30 09:58] LABS: ALT (SGPT) 24 U/L (8-55); AST (SGOT) 34 U/L (5-34); Albumin 2.7 g/dL (3.4-4.8); Alkaline Phosphatase 1381 U/L (40-110); Anion Gap 12 mmol/L (10-20); BUN (Urea Nitrogen) 11 mg/dL (9.8-20.1); Bilirubin, Total 0.8 mg/dL (0.2-1.2); Calc. Creatinine Clearance 66 mL/min (70-130); Calcium 7.9 mg/dL (7.8-10.44); Carbon Dioxide 21 mmol/L (23-31); Chloride 99 mmol/L (98-107); Globulin 2.4 g/dL (2.4-3.5); Glucose 116 mg/dL (83-110); Protein, Total 5.1 g/dL (5.8-8.1); Sodium 130 mmol/L (136-145)
[2021-01-30 10:00] LABS: Potassium 2.3 mmol/L (3.5-5.1)
[2021-01-30] MEDS ORDERED: Mag-Al Plus 1200 MG/1200 MG/120 MG/30 ML UDCUP PO PRN (10:25)
[2021-01-30] MEDS: Potassium Chloride 20 MEQ in Premix Bag 1 BAG IVPB SCH ×2 (12:41→14:23)
[2021-01-30] MEDS ORDERED: Prochlorperazine Edisylate 10 MG in Sodium Chloride 0.9% 50 ML IVPB SCH (14:00)
[2021-01-30] MEDS: Atorvastatin Calcium 20 MG TAB PO SCH (20:42)
[2021-01-30] MEDS: fentaNYL 50 mcg/hour Patch TD SCH (22:34)
[2021-01-30] MEDS: Amino Acids 4.25 %/Dextrose 5% 1,000 ML IV SCH (23:36)
[2021-01-30] MEDS: Ondansetron HCl/PF 8 MG in Sodium Chloride 0.9% 50 ML IVPB PRN (23:54)
[2021-01-31] MEDS: Promethazine HCl 12.5 MG in Sodium Chloride 0.9% 50 ML IVPB PRN ×2 (02:13→09:25)
[2021-01-31] MEDS: Ketorolac Tromethamine 30 MG/ML VIAL IVP PRN (04:50)
[2021-01-31] MEDS: Ondansetron HCl/PF 8 MG in Sodium Chloride 0.9% 50 ML IVPB PRN (07:18)
[2021-01-31 07:21] VITALS: BP 126/71; TEMP 98.9
[2021-01-31] MEDS: Losartan 25 MG TAB PO SCH (08:02)
[2021-01-31] MEDS: Potassium Chloride 20 MEQ in Premix Bag 1 BAG IVPB SCH ×2 (09:53→11:50)
[2021-01-31 09:55] LABS: Anion Gap 12 mmol/L (10-20); BUN (Urea Nitrogen) 14 mg/dL (9.8-20.1); Calc. Creatinine Clearance 63 mL/min (70-130); Calcium 8.1 mg/dL (7.8-10.44); Carbon Dioxide 22 mmol/L (23-31); Chloride 100 mmol/L (98-107); Glucose 112 mg/dL (83-110); Magnesium 1.4 mg/dL (1.6-2.6); Phosphorus 2.3 mg/dL (2.3-4.7); Sodium 131 mmol/L (136-145)
[2021-01-31 09:59] LABS: Potassium 2.8 mmol/L (3.5-5.1)
[2021-01-31] MEDS ORDERED: Magnesium Sulfate 4 GM in Sodium Chloride 0.9% 250 ML 250 ML IVPB SCH (10:15)
[2021-01-31] MEDS: Ondansetron PF 4 MG/2 ML Vial IVP PRN (13:55)
== END 2021-01-31 14:26 | disposition hospice, inpatient (51) | DRG 374 ==
LOC: ERS 12:26 → ONC 15:01 → OBSVTOIN 01-25 19:48
PROVIDERS: ADMIT Internal Medicine; ATTEND Internal Medicine
PROC: 8E0ZXY6 Isolation (ICD-10-PCS; 2021-01-24)
PROC: 30233N1 Transfusion of Nonautologous Red Blood Cells into Peripheral Vein, Percutaneous Approach (ICD-10-PCS; principal; 2021-01-26)
PROC: DP0 Radiation Therapy, Musculoskeletal System, Beam Radiation (ICD-10-PCS; 2021-01-26)
DX: C16.9 Malignant neoplasm of stomach, unspecified (principal); E43 Unspecified severe protein-calorie malnutrition; Z68.1 Body mass index [BMI] 19.9 or less, adult; E87.1 Hypo-osmolality and hyponatremia; C79.51 Secondary malignant neoplasm of bone; R11.2 Nausea with vomiting, unspecified; Z20.822 Contact with and (suspected) exposure to COVID-19; Z66 Do not resuscitate; Z51.5 Encounter for palliative care; E87.6 Hypokalemia; E83.42 Hypomagnesemia; I10 Essential (primary) hypertension; E78.5 Hyperlipidemia, unspecified; D53.9 Nutritional anemia, unspecified; D72.829 Elevated white blood cell count, unspecified; G43.909 Migraine, unspecified, not intractable, without status migrainosus; R19.7 Diarrhea, unspecified; F41.9 Anxiety disorder, unspecified; E87.8 Other disorders of electrolyte and fluid balance, not elsewhere classified; T45.8X5A Adverse effect of other primarily systemic and hematological agents, initial encounter; Z88.6 Allergy status to analgesic agent; Z88.2 Allergy status to sulfonamides; Z88.8 Allergy status to other drugs, medicaments and biological substances; Z79.899 Other long term (current) drug therapy; Z90.710 Acquired absence of both cervix and uterus; Z83.2 Family history of diseases of the blood and blood-forming organs and certain disorders involving the immune mechanism; Z88.1 Allergy status to other antibiotic agents
CPT/HCPCS: 36415; 36430; 71045; 74177; 77280; 77295; 77300; 77334; 77412; 80048; 80053; 81003; 83605; 83690; 83735; 83880; 84100; 84484; 85025; 86850; 86900; 86901; 87040; 87045; 87046; 87081; 87324; 87427; 87449; 93005; 96361; 96365; 96366; 96372; 96374; 96375; 96376; G0378; J1885; J2060; J2270; J2405; J2550; J3475; J3480; J7050; P9016; Q9967; U0002